=== PATIENT | female | born 1980 | race Caucasian/White ===

== ENCOUNTER 2017-11-24 21:33 | Emergency (ER) | payer MEDICAID ==
[~2017-11-24] VITALS: Ht 154.9 cm; Wt 56.7 kg
[2017-11-24 21:40] VITALS: Ht 154.9 cm; Wt 56.7 kg
[2017-11-25] VITALS: BP 123/73
== END 2017-11-25 | disposition home or self-care (01) ==
LOC: ED 21:33
DX: R51 Headache (principal); R42 Dizziness and giddiness
CPT/HCPCS: J1885

== ENCOUNTER 2019-04-18 20:53 | Emergency (ER) | payer MEDICAID ==
[~2019-04-18] VITALS: Ht 165.1 cm; Wt 60.3 kg
[2019-04-18 21:21] VITALS: Ht 165.1 cm; Wt 60.3 kg
[2019-04-18 23:31] LABS: BASOPHIL % 0.3 % (0-2); PLATELET COUNT 299 x10^3mcL (130-400)
[2019-04-19 00:14] VITALS: BP 102/57
== END 2019-04-19 02:50 | disposition home or self-care (01) ==
LOC: ED 20:53
PROVIDERS: Emergency Medicine
DX: N93.8 Other specified abnormal uterine and vaginal bleeding (principal)
CPT/HCPCS: 36415; Q0092